=== PATIENT | male | born 1975 | race Caucasian/White ===

== ENCOUNTER → 2017-01-10 | Outpatient (CLI) | payer OTHER ==
--- NOTE | 2017-01-10 19:13 | XCELERA REPORT ---
[address] [address] Lower Extremity Venous Evaluation Name: KATERINE BELLA Age: 41 yrs Gender: Male : 1975 Patient Status: Outpatient Patient Location: Study Date: 01/10/2017 03:08 PM Procedure: Color flow and duplex imaging of the veins of the left lower extremity as well as the right Common Femoral vein. Reason For Study: H/O DVT LEFT PTV Ordering Physician: TOMI THOMAS Performed By: Oseas Etienne Right Sided Venous Evaluation The right common femoral vein is fully compressible. Spontaneous and phasic flow is present in the right common femoral vein. Left Sided Venous Evaluation Normal vessel filling wall to wall, compression and augmentation as well as Colour flow down to the infrageniculate veins. Interpretation Summary No duplex evidence of DVT or obstruction in the left lower extremity nor in the right Common Femoral vein. : TOMI THOMAS [place]
== END ==
LOC: SP 14:52
PROVIDERS: ATTEND Specialist
DX: I82.442 Acute embolism and thrombosis of left tibial vein (principal)
CPT/HCPCS: 93971

== ENCOUNTER → 2017-10-11 | Outpatient (CLI) | payer OTHER ==
--- NOTE | 2017-10-12 07:52 | XCELERA REPORT ---
[address] [address] Lower Extremity Venous Evaluation Name: KATERINE BELLA Age: 41 yrs Gender: Male : 1975 Patient Status: Outpatient Patient Location: Study Date: 10/11/2017 04:07 PM Procedure: Color flow and duplex imaging of the veins of the left lower extremity as well as the right Common Femoral vein. Reason For Study: LLE PAIN Ordering Physician: ROSANGELA JIMENEZ Performed By: Maria Fernanda Garcia Right Sided Venous Evaluation The right common femoral vein is fully compressible. Spontaneous and phasic flow is present in the right common femoral vein. Left Sided Venous Evaluation Normal vessel filling wall to wall, compression and augmentation as well as Colour flow down to the infrageniculate veins. Interpretation Summary No duplex evidence of DVT or obstruction in the left lower extremity nor in the right Common Femoral vein. : ROSANGELA JIMENEZ > Rm Carter
== END ==
LOC: SP 15:44
PROVIDERS: ATTEND Physician Assistant
DX: M25.562 Pain in left knee (principal)
CPT/HCPCS: 93971